=== PATIENT | male | born 1950 | race Caucasian/White ===

== ENCOUNTER → 2019-05-16 | Outpatient (CLI) | payer MEDICARE ==
[~2019-05-16] MED LIST: ACET-1600 PO; AMLO-150 PO; ATOR10TA9 PO; CHOL200052 PO; GEMF600T8 PO; KRIL1CAP31 PO; LISI-167 PO; MELA5TAB19 PO; MULT-658 PO; TYLENOL PM PO
[2019-05-16 11:11] LABS: BASOPHILS # (AUTO) 0.04 x10^3/uL (0-0.1); BASOPHILS % (AUTO) 1 % (0-1); EOSINOPHILS # (AUTO) 0.14 x10^3/uL (0-0.4); EOSINOPHILS % (AUTO) 3 % (1-7); LYMPHOCYTES # (AUTO) 2.17 x10^3/uL (1-3.4); LYMPHOCYTES % (AUTO) 39 % (22-44); MD NO; MEAN CORPUSCULAR HGB CONC 32.6 g/dL (33.2-36.2); MEAN CORPUSCULAR VOLUME 82.6 fL (81-97); MEAN PLATELET VOLUME 9.2 fL (7.4-10.4); MONOCYTES # (AUTO) 0.45 x10^3/uL (0.2-0.8); MONOCYTES % (AUTO) 8 % (2-9); NEUTROPHILS # (AUTO) 2.81 x10^3/uL (1.8-6.8); NEUTROPHILS % (AUTO) 50 % (42-75); PLATELET COUNT 238 x10^3/uL (130-400); RED BLOOD COUNT 5.74 x10^6/uL (4.38-5.82); RED CELL DISTRIBUTION WIDTH 16.1 % (9.4-14.8)
[2019-05-16 11:20] LABS: ALBUMIN 4.6 g/dL (3.4-5.0); ANION GAP 6 mmol/L (5-15); CALCIUM 9.6 mg/dL (8.5-10.1); CHLORIDE 108 mmol/L (98-107)
[2019-05-16 11:27] LABS: ALANINE AMINOTRANSFERASE 28 U/L (12-78); ALKALINE PHOSPHATASE 80 U/L (45-117); BILIRUBIN,TOTAL 0.6 mg/dL (0.2-1.0); TOTAL PROTEIN 7.6 g/dL (6.4-8.2)
== END | disposition home or self-care (01) ==
LOC: STAR 09:45
PROVIDERS: ATTEND Surgery
DX: Z01.818 Encounter for other preprocedural examination (principal); I10 Essential (primary) hypertension; R91.1 Solitary pulmonary nodule; R00.1 Bradycardia, unspecified
CPT/HCPCS: 36415; 71046; 80053; 82378; 85025; 93005

== ENCOUNTER 2019-05-21 09:17 | Inpatient (IN) | payer MEDICARE ==
[~2019-05-21] VITALS: Ht 188 cm; Wt 98.0 kg
[~2019-05-21 09:17] MED LIST changes: -ACET-1600 PO; -MELA5TAB19 PO; -TYLENOL PM PO
[2019-05-21] MEDS ORDERED: ACET-1600 PO (12:28)
[2019-05-21] MEDS ORDERED: MELA5TAB14 PO (12:28)
[2019-05-21] MEDS ORDERED: TYLENOL PM PO (12:28)
[2019-05-21] MEDS ORDERED: LACTATED RINGERS 1,000 ML IV SCH (12:28)
[2019-05-21] MEDS ORDERED: ACETAMINOPHEN 500 MG TABLET PO ONE (13:30)
[2019-05-21] MEDS ORDERED: DIAZEPAM 5 MG TABLET PO ONE (13:30)
[2019-05-21] MEDS ORDERED: GABAPENTIN 300 MG CAPSULE PO ONE (13:30)
[2019-05-21] MEDS ORDERED: PHENYLEPHRINE 10 MG/ML ONE (13:57)
[2019-05-21] MEDS ORDERED: EPHEDRINE 50 MG/ML, 1ML ONE (13:57)
[2019-05-21] MEDS ORDERED: FENTANYL PF 250 MCG/5ML ONE (14:52)
[2019-05-21] MEDS ORDERED: PROMETHAZINE 25 MG/ML, 1ML IV PRN (15:00)
[2019-05-21] MEDS ORDERED: MIDAZOLAM 1 MG/ML, 2ML IV PRN (15:00)
[2019-05-21] MEDS ORDERED: ALBUTEROL/IPRATROPIUM 2.5MG/0.5MG, 3 ML NPPB PRN (15:00)
[2019-05-21] MEDS ORDERED: HYDROmorphone 2 MG/ML, 1ML IVPush PRN ×2 (15:00→17:00)
[2019-05-21] MEDS ORDERED: SCOPOLAMINE PATCH, 1.5MG PATCH.TD72 TD PRN ×2 (15:00→17:00)
[2019-05-21] MEDS ORDERED: OXYcodone 5 MG/5 ML ORAL.SOL UDC PO PRN (15:00)
[2019-05-21] MEDS ORDERED: FENTANYL PF 100 MCG/2ML IV PRN (15:00)
[2019-05-21] MEDS ORDERED: METOPROLOL 1 MG/ML, 5ML IV PRN (15:00)
[2019-05-21] MEDS ORDERED: ONDANSETRON 2MG/ML, 2ML IV PRN ×2 (15:00→17:00)
[2019-05-21] MEDS ORDERED: MEPERIDINE/PF 25MG/0.5ML IVPush PRN (15:00)
[2019-05-21] MEDS ORDERED: hydrALAzine 20 MG/ML, 1ML IV PRN (15:00)
[2019-05-21] MEDS ORDERED: MEPERIDINE/PF 25MG/ML,1ML IVPush PRN (15:00)
[2019-05-21] MEDS ORDERED: ONDANSETRON 2MG/ML, 2ML ONE (15:19)
[2019-05-21] MEDS ORDERED: CEFOTETAN PMX 2GM/50ML 50 ML ONE (15:19)
[2019-05-21] MEDS ORDERED: GLYCOPYRROLATE 0.2MG/1ML, 5ML ONE (15:19)
[2019-05-21] MEDS ORDERED: DEXAMETHASONE 4 MG/ML, 1ML ONE (15:19)
[2019-05-21] MEDS ORDERED: NEOSTIGMINE 1 MG/ML, 10ML ONE (15:19)
[2019-05-21] MEDS ORDERED: PROPOFOL 10 MG/ML, 20ML ONE (15:19)
[2019-05-21] MEDS ORDERED: ROCURONIUM 10MG/ML,5ML ONE (15:19)
[2019-05-21] MEDS ORDERED: FENTANYL PF 100 MCG/2ML ONE (15:35)
[2019-05-21] MEDS ORDERED: OXYcodone 5 MG/5 ML ORAL.SOL UDC ONE (15:35)
[2019-05-21] MEDS ORDERED: LORazepam 1MG TABLET PO PRN (17:00)
[2019-05-21] MEDS ORDERED: TRAZODONE 50MG TABLET PO PRN (17:00)
[2019-05-21] MEDS ORDERED: DEXAMETHASONE 4 MG/ML, 1ML IVPush PRN (17:00)
[2019-05-21] MEDS ORDERED: HALOPERIDOL 5 MG/ML IVPush PRN (17:00)
[2019-05-21] MEDS ORDERED: OXYcodone IR 5MG TABLET PO PRN (17:00)
[2019-05-21] MEDS ORDERED: CALCIUM CARBONATE 500 MG TAB.CHEW PO PRN (17:00)
[2019-05-21] MEDS ORDERED: DIPHENHYDRAMINE 50 MG/ML, 1ML IVPush PRN (17:00)
[2019-05-21] MEDS ORDERED: DIPHENHYDRAMINE 25 MG CAPSULE PO PRN (17:00)
[2019-05-21] MEDS ORDERED: LORazepam 2 MG/ML, 1ML IVPush PRN (17:00)
[2019-05-21] MEDS ORDERED: D5%-0.45NACL+KCL 20MEQ 1,000 ML IV SCH (17:00)
[2019-05-21] MEDS: D5%-0.45NACL+KCL 20MEQ 1,000 ML IV SCH (18:08)
[2019-05-21] MEDS: ACETAMINOPHEN 500 MG TABLET PO SCH (19:56)
[2019-05-21] MEDS: ATORVASTATIN 10 MG TABLET PO SCH (19:56)
[2019-05-21 21:29] VITALS: BP 159/83
[2019-05-22 00:08] VITALS: BP 143/72
[2019-05-22 02:25] VITALS: BP 143/80
[2019-05-22] MEDS: ACETAMINOPHEN 500 MG TABLET PO SCH ×4 (02:46→20:19)
[2019-05-22 03:06] LABS: MEAN CORPUSCULAR HEMOGLOBIN 26.5 pg (27.5-34.5); MEAN CORPUSCULAR HGB CONC 32.3 g/dL (33.2-36.2); MEAN PLATELET VOLUME 8.6 fL (7.4-10.4); PLATELET COUNT 221 x10^3/uL (130-400); RED BLOOD COUNT 5.79 x10^6/uL (4.38-5.82); RED CELL DISTRIBUTION WIDTH 16.4 % (9.4-14.8)
[2019-05-22 03:10] LABS: ALBUMIN 4.2 g/dL (3.4-5.0); ANION GAP 8 mmol/L (5-15); CALCIUM 9.4 mg/dL (8.5-10.1); CHLORIDE 106 mmol/L (98-107); CREATININE 1.46 mg/dL (0.7-1.3)
[2019-05-22 03:43] LABS: BASOPHILS # (AUTO) 0.01 x10^3/uL (0-0.1); BASOPHILS % (AUTO) 0 % (0-1); EOSINOPHILS # (AUTO) 0.02 x10^3/uL (0-0.4); EOSINOPHILS % (AUTO) 0 % (1-7); LYMPHOCYTES # (AUTO) 0.83 x10^3/uL (1-3.4); LYMPHOCYTES % (AUTO) 7 % (22-44); MD SCAN; MONOCYTES # (AUTO) 0.38 x10^3/uL (0.2-0.8); MONOCYTES % (AUTO) 3 % (2-9); NEUTROPHILS # (AUTO) 11.01 x10^3/uL (1.8-6.8); NEUTROPHILS % (AUTO) 90 % (42-75)
[2019-05-22] MEDS: D5%-0.45NACL+KCL 20MEQ 1,000 ML IV SCH ×2 (06:16→20:19)
[2019-05-22 06:35] VITALS: BP 158/77
[2019-05-22] MEDS: AMLODIPINE 5 MG TABLET PO SCH (08:14)
[2019-05-22] MEDS: ENOXAPARIN 40 MG/0.4 ML SQ SCH (08:14)
[2019-05-22] MEDS: LISINOPRIL 10 MG TABLET PO SCH (08:14)
[2019-05-22] MEDS: GEMFIBROZIL 600 MG TABLET PO SCH (08:14)
[2019-05-22 14:22] VITALS: BP 137/70
[2019-05-22] MEDS: ATORVASTATIN 10 MG TABLET PO SCH (20:18)
[2019-05-22 20:33] VITALS: BP 152/74
[2019-05-23 01:44] VITALS: BP 139/82
[2019-05-23] MEDS: ACETAMINOPHEN 500 MG TABLET PO SCH ×3 (01:50→13:46)
[2019-05-23 03:41] LABS: BASOPHILS # (AUTO) 0.15 x10^3/uL (0-0.1); BASOPHILS % (AUTO) 1 % (0-1); EOSINOPHILS % (AUTO) 1 % (1-7); LYMPHOCYTES # (AUTO) 2.36 x10^3/uL (1-3.4); LYMPHOCYTES % (AUTO) 23 % (22-44); MD NO; MEAN CORPUSCULAR HEMOGLOBIN 26.4 pg (27.5-34.5); MEAN CORPUSCULAR HGB CONC 32.2 g/dL (33.2-36.2); MEAN PLATELET VOLUME 8.6 fL (7.4-10.4); MONOCYTES % (AUTO) 9 % (2-9); NEUTROPHILS # (AUTO) 6.71 x10^3/uL (1.8-6.8); NEUTROPHILS % (AUTO) 66 % (42-75); PLATELET COUNT 195 x10^3/uL (130-400); RED BLOOD COUNT 5.42 x10^6/uL (4.38-5.82)
[2019-05-23 03:54] LABS: ALBUMIN 3.8 g/dL (3.4-5.0); ANION GAP 8 mmol/L (5-15); CALCIUM 9.1 mg/dL (8.5-10.1); CHLORIDE 109 mmol/L (98-107)
[2019-05-23 03:55] LABS: CREATININE 1.22 mg/dL (0.7-1.3)
[2019-05-23 08:02] VITALS: BP 160/72
[2019-05-23] MEDS: AMLODIPINE 5 MG TABLET PO SCH (08:35)
[2019-05-23] MEDS: GEMFIBROZIL 600 MG TABLET PO SCH (08:35)
[2019-05-23] MEDS: LISINOPRIL 10 MG TABLET PO SCH (08:36)
[2019-05-23] MEDS: ENOXAPARIN 40 MG/0.4 ML SQ SCH (08:38)
[2019-05-23] MEDS: D5%-0.45NACL+KCL 20MEQ 1,000 ML IV SCH (11:54)
[2019-05-23 17:09] VITALS: BP 134/76
[2019-05-23] MEDS ORDERED: OXYC-302 PO (19:44)
[2019-05-23 19:50] VITALS: BP 149/79
== END 2019-05-23 20:43 | disposition home or self-care (01) | DRG 329 ==
LOC: ORIP 12:00 → 4NOR 16:30
PROVIDERS: ADMIT Surgery; ATTEND Surgery
PROC: 0DTF4ZZ Resection of Right Large Intestine, Percutaneous Endoscopic Approach (ICD-10-PCS; principal; 2019-05-21 14:15)
PROC: 3E0T3BZ Introduction of Anesthetic Agent into Peripheral Nerves and Plexi, Percutaneous Approach (ICD-10-PCS; 2019-05-21 14:15)
DX: D49.0 Neoplasm of unspecified behavior of digestive system (principal); N17.0 Acute kidney failure with tubular necrosis; I10 Essential (primary) hypertension; E78.5 Hyperlipidemia, unspecified; E78.00 Pure hypercholesterolemia, unspecified; Z82.49 Family history of ischemic heart disease and other diseases of the circulatory system; Z87.891 Personal history of nicotine dependence
CPT/HCPCS: 36415; 80048; 82040; 85025; 86850; 86900; 88307; 88309; G0378; J1100; J1650; J2405; J2704; J2710; J3010; J2370; J3480; J3490; J7120

== ENCOUNTER → 2020-08-19 | Outpatient (CLI) | payer MEDICARE ==
[~2020-08-19] MED LIST changes: +ACET-1600 PO; +MELA5TAB14 PO; +OMNIPAQUE 350 MG/ML, 100ML BOTTLE ONE; +OXYC-302 PO; +TYLENOL PM PO
== END | disposition home or self-care (01) ==
LOC: CFH 08:24
PROVIDERS: ATTEND Nurse Practitioner Family
DX: I77.811 Abdominal aortic ectasia (principal); I25.10 Atherosclerotic heart disease of native coronary artery without angina pectoris; R91.1 Solitary pulmonary nodule; Z87.891 Personal history of nicotine dependence
CPT/HCPCS: 71260; 76706; Q9967